=== PATIENT | female | born 1930 | race Caucasian/White ===

== ENCOUNTER 2017-08-18 08:33 | Inpatient (IN) ==
[2017-08-12 13:49] LABS: Basophils # (Auto) 0.1 K/mcL (0.0-0.3); Basophils % (Auto) 0.7 % (0.0-2.0); Eosinophils # (Auto) 0.2 K/mcL (0.0-0.7); Eosinophils % (Auto) 3.2 % (0.0-7.0); Granulocytes % (Auto) 60.9 % (38.0-78.0); Lymphocytes # (Auto) 1.4 K/mcL (1.5-4.8); Lymphocytes % (Auto) 18.5 % (15.5-49.0); Mean Corpuscular HGB Conc 33.6 g/dL (31.0-36.0); Mean Corpuscular Hemoglobin 29.6 pg (26.0-34.0); Monocytes # (Auto) 1.3 K/mcL (0.1-0.9); Monocytes % (Auto) 16.7 % (1.0-12.0); Platelet Count 201 K/mcL (140-440); RBC 4.28 M/mcL (4.00-5.20); Red Cell Distribution Width 14.8 % (11.5-14.5)
[2017-08-12 13:53] LABS: Appearance,Urine HAZY; Bilirubin,Urine NEG (NEG); Color,Urine YELLOW; Glucose,Urine (UA) NEGATIVE (NEG); Leukocyte Esterase,Urine NEG /uL (NEG); Nitrate,Urine NEG (NEG); Protein,Urine NEG (NEG); Specific Gravity,Urine 1.016 (1.000-1.035); Urine Blood NEG mg/dL (<0.03); Urobilinogen,Urine NEG (NEG)
[2017-08-12 14:11] LABS: Blood Urea Nitrogen 23 mg/dl (8-23)
[~2017-08-18 08:33] MED LIST: CELECOXIB 200 MG CAPSULE PO SCH; KETOROLAC 30 MG, ROPIVACAINE HCL/PF 49.5 ML, EPINEPHrine 0.5 MG, 0.9 % SODIUM CHLORIDE ... IJ ONE; PREGABALIN 75 MG CAPSULE PO SCH; ceFAZolin 1 GM VIAL IV SCH; oxyCODONE 10 MG TAB.ER.12H PO SCH
[2017-08-18] MEDS ORDERED: PROPOFOL 200 MG/20 ML VIAL IV ONE (11:46)
[2017-08-18] MEDS ORDERED: LIDOCAINE HCL/PF 100 MG/5 ML SYRINGE IV ONE (11:46)
[2017-08-18] MEDS ORDERED: ONDANSETRON 4 MG/2 ML VIAL ONE (11:46)
[2017-08-18] MEDS ORDERED: KETAMINE 10 MG/ML ML ONE (11:46)
[2017-08-18] MEDS ORDERED: GLYCOPYRROLATE 0.2 MG/ML VIAL IV ONE (11:46)
[2017-08-18] MEDS ORDERED: MIDAZOLAM 2 MG/2 ML VIAL ONE (11:46)
[2017-08-18] MEDS ORDERED: PHENYLEPHRINE 10 MG/ML VIAL ONE (11:46)
[2017-08-18] MEDS ORDERED: METHOCARBAMOL 1,000 MG/10 ML VIAL IV PRN (13:04)
[2017-08-18] MEDS ORDERED: MEPERIDINE 25 MG/ML SYRINGE IV PRN (13:04)
[2017-08-18] MEDS ORDERED: BENZOCAINE/MENTHOL 1 LOZENGE PO PRN ×2 (13:04→13:32)
[2017-08-18] MEDS ORDERED: METOPROLOL TARTRATE 5 MG/5 ML VIAL IV PRN (13:04)
[2017-08-18] MEDS ORDERED: IPRATROPIUM/ALBUTEROL 3 ML AMPUL.NEB NEB PRN (13:04)
[2017-08-18] MEDS ORDERED: ONDANSETRON 4 MG/2 ML VIAL IV PRN ×2 (13:04→13:32)
[2017-08-18] MEDS ORDERED: LACTATED RINGERS 1,000 ML IV SCH (13:15)
--- NOTE | 2017-08-18 13:31 | Brief Operative Note ---
Date of procedure: 08/18/17 Pre-op diagnosis: Right knee severe DJD Post-op diagnosis: same Procedure: Right robotic assisted total knee arthroplasty Grafts/Implants: Yes ([employer]grath Triathlon CR 4 femur, 4 tibia, 33 patella, 11 insert) Anesthesia: GLMA Findings: severe arthritis Complications: none Surgeon: Carlos Alberto Langford Medical Technologist Blood Bank: Moses Vallejo Estimated blood loss (cc): 30 Specimens Removed/Pathology: none sent Condition: stable Disposition: PACU
[2017-08-18] MEDS ORDERED: FLEETS ADULT ENEMA PR PRN (13:32)
[2017-08-18] MEDS ORDERED: MAGNESIUM HYDROXIDE 30 ML ORAL.SUSP PO PRN (13:32)
[2017-08-18] MEDS ORDERED: BISACODYL 10 MG SUPP.RECT PR PRN (13:32)
[2017-08-18] MEDS ORDERED: TRANEXAMIC ACID 1,000 MG/10 ML VIAL IV ONE (13:32)
[2017-08-18] MEDS ORDERED: POLYETHYLENE GLYCOL 3350 17 GM PACKET PO PRN (13:32)
[2017-08-18] MEDS: 0.9 % SODIUM CHLORIDE 10 ML SYRINGE IV SCH ×2 (14:51→22:08)
[2017-08-18] MEDS: 0.9 % SODIUM CHLORIDE 1,000 ML IV SCH (14:55)
--- NOTE | 2017-08-18 15:55 | XRay Report ---
CLINICAL INFORMATION: Reason for Exam:Post-op total knee. COMPARISON: None. FINDINGS: Total knee prostheses is anatomically aligned. No osseous abnormalities. Periarticular gas and soft tissue swelling seen as expected IMPRESSION: Negative Interpreted and Authenticated by: Parish Donahue 08/18/17
[2017-08-18] MEDS: KETOROLAC 15 MG/ML VIAL IV SCH (17:21)
[2017-08-18] MEDS: oxyCODONE/APAP 5/325MG TABLET PO PRN (19:28)
[2017-08-18] MEDS: ceFAZolin 1 GM VIAL IV SCH (19:28)
[2017-08-18] MEDS ORDERED: MONTELUKAST 10 MG TABLET PO SCH (21:00)
[2017-08-18] MEDS ORDERED: SENNOSIDES 1 TABLET PO SCH (21:00)
[2017-08-18] MEDS ORDERED: traZODone HCL 50 MG TABLET PO SCH (21:00)
[2017-08-18] MEDS ORDERED: ATORVASTATIN 20 MG TABLET PO SCH (21:00)
[2017-08-18] MEDS: ASPIRIN 325 MG ENTERIC COATED TABLET PO SCH (22:08)
[2017-08-18] MEDS: DOCUSATE SODIUM 100 MG CAPSULE PO SCH (22:08)
[2017-08-19] MEDS: 0.9 % SODIUM CHLORIDE 1,000 ML IV SCH ×2 (00:40→01:38)
[2017-08-19] MEDS: KETOROLAC 15 MG/ML VIAL IV SCH ×2 (01:06→06:34)
[2017-08-19] MEDS: oxyCODONE/APAP 5/325MG TABLET PO PRN ×2 (02:19→07:27)
[2017-08-19] MEDS: ceFAZolin 1 GM VIAL IV SCH (03:27)
[2017-08-19] MEDS: 0.9 % SODIUM CHLORIDE 10 ML SYRINGE IV SCH (05:37)
--- NOTE | 2017-08-19 06:38 | Discharge Summary ---
Ortho Discharge - TKA - Patient Instructions Diet: Regular Diet Activity: activity as tolerated, weight bearing as tolerated Total Knee Protocol: For Total Knee: Start ROM KVNG with stationary bike or rocking chair. Work on gaining full extension of knee. Posterior dislocation precautions provided. Hip abductor strengthening and gait training instructions provided. Apply Cryocuff as instructed. Dressing Care: May shower in 2 days, Aquacel Ag - leave on for 5 days - Follow Up Plan Follow Up Appointments: Moses Vallejo PA-C [Physician Neuropsychiatrist] - 09/02/17 1:10 pm Disposition: Home, Self-Care Prognosis: Good Rehab Potential: Good - Orders For Discharge Additional Discharge Orders: Physical Therapy at Discharge - TKA Location: Determined By Patient Toilet Riser Discharge Order Location: Determined By Patient Walker Location: Determined By Patient
--- NOTE | 2017-08-19 07:22 | Orthopedic Progress Note ---
Subjective Patient information: Note initiated : 08/19/17 at 7:19 am Service Date, if different from initiated Date: [] Patient: Victorina Colunga 86 y/o F admitted on 08/18/17 for Right Total Knee Arthroplasty - Rich. Chief Complaint: [] Principal diagnosis: s/p total knee Pertinent ROS: pain well controlled, no complaints Objective Vital signs: Vital Signs Temp Pulse Resp BP Pulse Ox 08/19/17 07:16 98.5 F 68 16 161/76 95 08/19/17 03:58 97.6 F 76 12 161/76 96 08/18/17 23:06 97.4 F 83 12 160/60 95 08/18/17 20:35 161/80 08/18/17 19:37 94 08/18/17 19:32 97.3 F 88 12 180/94 94 08/18/17 17:00 158/75 99 08/18/17 16:30 138/74 99 08/18/17 16:00 128/75 96 08/18/17 15:30 118/67 96 08/18/17 15:15 126/70 92 08/18/17 15:00 129/72 98 08/18/17 14:45 115/65 98 08/18/17 14:30 97.6 F 75 15 134/57 97 08/18/17 14:19 78 20 128/65 96 08/18/17 14:15 77 11 L 124/57 97 08/18/17 14:03 77 12 122/55 96 08/18/17 13:58 84 13 135/68 98 08/18/17 13:53 98.4 F 79 10 L 133/54 99 08/18/17 09:00 96.1 F L 18 180/80 97 Intake and Output 08/18/17 08/19/17 08/19/17 21:59 05:59 13:59 Intake Total 1820 / 1820 2400 / 2400 240 / 240 Output Total 35 / 35 850 / 850 300 / 300 Balance 1785 / 1785 1550 / 1550 -60 / -60 Intake: IV 1400 / 1400 Sodium Chloride 0.9% 1, 1400 / 1400 000 ml @ 100 mls/hr IV . Q10H [facility] Rx#:[id number] Oral 1820 / 1820 1000 / 1000 240 / 240 Output: Void Amount 10 / 10 850 / 850 300 / 300 Estimated Blood Loss Other: Meal Dinner Percent of Meal Consumed 100% # Voids 1 Weight 190 lb Intake & Output: Intake & Output 08/18/17 08/19/17 08/19/17 21:59 05:59 13:59 Intake Total 1820 / 1820 2400 / 2400 240 / 240 Output Total 35 / 35 850 / 850 300 / 300 Balance 1785 / 1785 1550 / 1550 -60 / -60 Weight 190 lb Intake: IV 1400 / 1400 Sodium Chloride 0.9% 1, 1400 / 1400 000 ml @ 100 mls/hr IV . Q10H [facility] Rx#:[id number] Oral 1820 / 1820 1000 / 1000 240 / 240 Output: Void Amount 850 / 850 300 / 300 Estimated Blood Loss Other: Meal Dinner Percent of Meal Consumed 100% # Voids 1 Dressing: Yes clean, Yes dry, Yes intact Neurological exam IM: Yes alert, Yes oriented X3, Yes neurovascular intact - Labs CBC & BMP: 08/19/17 05:25 08/12/17 12:09 Labs: Orthopedic Labs 08/12/17 12:09 PT 14.1 INR 1.1 08/19/17 08/12/17 05:25 12:09 Hgb 10.4 L 12.7 Hct 31.2 L 37.7 Assessment and Plan (1) Status post total right knee replacement POD#1-pain well controlled, wants to d/c home -d/c Status: Acute
[2017-08-19] MEDS: DOCUSATE SODIUM 100 MG CAPSULE PO SCH (08:30)
[2017-08-19] MEDS: ASPIRIN 325 MG ENTERIC COATED TABLET PO SCH (08:30)
[2017-08-19] MEDS ORDERED: [UNRECOGNIZED DRUG - OTHER] PO SCH (09:00)
[2017-08-19] MEDS ORDERED: LOSARTAN 50 MG TABLET PO SCH (09:00)
--- NOTE | 2017-08-19 09:20 | Operative Note ---
DATE OF OPERATION: 08/18/2017 PREOPERATIVE DIAGNOSIS: Right knee severe osteoarthritis. POSTOPERATIVE DIAGNOSIS: Right knee severe osteoarthritis. PROCEDURE PERFORMED: Right robotic-assisted total knee arthroplasty placing a size 4 cruciate retaining femoral component, size 4 tibial baseplate, 11 mm X3 tibial insert with a 33 mm patellar button. SURGEON: Carlos Alberto Langford MD. MAXILLOFACIAL PROSTHETICS DENTIST: Jose Antonio Vallejo PA-C. ANESTHESIA: Spinal plus general. DRAINS: None. SPECIMENS: Bone cuts, which were discarded. BLOOD LOSS: 30 mL COMPLICATIONS: None. POSTOPERATIVE CONDITION: Stable. INDICATIONS FOR SURGERY: This is an 86-year-old female who has had progressive worsening severe right knee pain. Radiographs showed severe tricompartmental [id number] osteoarthritis. She had a previous left total knee arthroplasty done by me and was pleased with that result. FINDINGS AT SURGERY: She had severe multi-compartment osteoarthritis. Post implantation showed good overall limb alignment, patellar tracking, and stability. PROCEDURE IN DETAIL: The patient had been seen preoperatively and informed consent had been obtained after discussion of risks and benefits of surgery. Risks including, but not limited to, bleeding, possibly requiring transfusion; infection, possibly requiring implant removal and prolonged IV antibiotics; injury to nerves, blood vessels, and other surrounding structures; anesthetic risks; incomplete or no resolution of symptoms; DVT and pulmonary embolus risks; and the possibility of needing further surgery. She understood these risks and wished to proceed. Correct operative site was marked and then patient was given spinal anesthesia. She was then taken to the operating room and LMA general given. The right lower extremity was carefully prepped and draped in normal sterile fashion and a time-out was performed verifying patient name, operative site, and plan. Esmarch was used to exsanguinate the extremity and tourniquet was inflated. A midline incision was made with a scalpel through skin and subcutaneous tissue. IrriSept was irrigated and then a medial parapatellar arthrotomy made. A limited subperiosteal exposure was done of the anterior medial tibia and then retropatellar fat pad was excised as well as what remained of the anterior horn of the menisci. Distal anterior cortex of the femur was also exposed subperiosteally. We then made two stab incisions over the femur and two over the tibia and placed bicortical pins and connected the arrays. We placed the femoral and tibial checkpoints. We then checked our hip center of rotation followed by medial and lateral malleoli checks and double checks of the femoral and tibial checkpoints. We then used the blue probe to do our mapping and once this was completed, we removed osteophytes. Flexion and extension gaps were checked. Components were adjusted to give 17 mm in all planes. We then used the robot to make our bone cuts with the saw. Once this was completed, we marked our tibial rotation. We then placed our tibial baseplate, pinned this into place and used a boss reamer and keel punched to prepare. We removed this and placed the keel baseplate trial. The femur was then elevated and a curved osteotome used to remove posterior osteophytes. The femoral trial component was pinned into place. Peg holes were drilled and then a 9 insert trial was placed. The knee went into full extension with good alignment. We then everted the patella, measured this and used a free hand technique to remove bone within a millimeter of her preoperative thickness. This sized to a 33, which we medialized maximally. Holes were drilled and then a lateral facetectomy performed. We checked our patellar tracking. There still was a slight tendency for subluxation and tilt, so we went ahead and performed a lateral release with the Bovie starting at the superior pole of patella 1 cm lateral and taking this down to the tibia. We then were able to have the patella track well. We then opened implants other than the tibial insert. We removed trial implants. Antibiotic cement was mixed while we irrigated with IrriSept. After a minute we pulse lavaged with saline. We then used CO2 gun to clean cut bone surfaces and then cemented the tibia followed by the femur. The 9 insert trial was placed. The knee was taken into extension. Excess cement removed. I cemented the patellar button. We then filled the joint with IrriSept and then injected pain cocktail in the pericapsular and subcutaneous tissues. After a minute we pulse lavaged copiously with saline. Once cement had fully hardened, we flexed the knee up. We felt like we could have a little bit better stability and she was in mild hyperextension, so we removed the 9 insert and trialed the 11. This gave us 0 on hyperextension and excellent stability so an 11 was opened. We removed the trial insert. We injected pain cocktail into the posterior capsule, irrigated with IrriSept and then impacted the insert. After a minute we pulse lavaged copiously with saline. We then used #2 FiberWire [id number] interrupted around the superior quadrant of the patella. Inferior quadrant was closed with #1 Vicryl [id number]. We then used a running #1 Vicryl for patellar tendon and quad tendon. Final IrriSept irrigation was done. After waiting a minute we pulse lavaged copiously with saline and then 2-0 Monocryl was used for subcutaneous and krunal for skin. Prior to closure, we did remove our femoral and tibial checkpoints. We then removed our pins from our arrays and then used krunal for closing these. Xeroform and sterile dressing were applied. Tourniquet was released and patient was then awakened, extubated, and transferred to recovery in stable condition. [email or web address] Job ID: [id number] Doc ID: [id number] Carlos Alberto Langford MD
== END 2017-08-19 09:00 | disposition home or self-care (01) | DRG 470 ==
LOC: MEDSUR 08:33
PROVIDERS: ADMIT Orthopaedic Surgery; ATTEND Orthopaedic Surgery